=== PATIENT | female | born 1960 | race Caucasian/White ===

== ENCOUNTER 2020-12-08 12:38 | Outpatient (REF) | payer OTHER, SELFPAY ==
--- NOTE | ~2020-12-08 | MM_ITS ---
EXAMINATION: MM SCREENING DIGITAL BREAST TOMOSYNTHESIS, BILATERAL CLINICAL INFORMATION: Screening. Asymptomatic. The lifetime risk of breast cancer based on the Tyrer-Cuzick Model is 6%. COMPARISON: Mammography: 08/25/2019, 11/21/2016 TECHNIQUE: Digital breast tomosynthesis is performed in both the craniocaudal and mediolateral oblique views along with computer-aided detection (CAD). Synthesized 2D images are generated from the tomosynthesis. Additional left MLO view is provided. FINDINGS: The breasts are almost entirely fatty (ACR BI-RADS breast composition Category a). There are no significant masses, abnormal calcifications, or other abnormalities. The axilla and skin contours are unremarkable. MM/MM tomosynthesis screening BI IMPRESSION: No mammographic evidence of malignancy. ASSESSMENT: BI-RADS 1: Negative RECOMMENDATION: Routine annual mammography screening. This patient's information was entered into a reminder system with a target due date for their next mammogram.
== END 2020-12-08 12:39 | disposition home or self-care (01) ==
LOC: HO.MAMMO 12:38
PROVIDERS: Absent Provider Obstetrics & Gynecology; PCP Internal Medicine; Visit Provider Internal Medicine
DX: Z12.31 Encounter for screening mammogram for malignant neoplasm of breast (principal)
CPT/HCPCS: 77063; 77067

== ENCOUNTER 2022-03-26 13:22 | Outpatient (REF) | payer OTHER, SELFPAY ==
--- NOTE | ~2022-03-26 | MM_ITS ---
EXAMINATION: MM SCREENING DIGITAL BREAST TOMOSYNTHESIS, BILATERAL CLINICAL INFORMATION: Screening. Asymptomatic. The lifetime risk of breast cancer based on the Tyrer-Cuzick Model is 5.3%. COMPARISON: Mammography: December 08, 2020 and studies dating back to March 09, 2014 TECHNIQUE: Digital breast tomosynthesis is performed in both the craniocaudal and mediolateral oblique views along with computer-aided detection (CAD). Synthesized 2D images are generated from the tomosynthesis. FINDINGS: The breasts are almost entirely fatty (ACR BI-RADS breast composition Category a). There are no significant masses, abnormal calcifications, or other abnormalities. MM/MM tomosynthesis screening BI IMPRESSION: There are no significant changes from prior study. ASSESSMENT: BI-RADS 1: Negative RECOMMENDATION: Routine annual mammography screening. This patient's information was entered into a reminder system with a target due date for their next mammogram.
== END 2022-03-26 13:23 | disposition home or self-care (01) ==
LOC: HO.MAMMO 13:22
PROVIDERS: PCP Internal Medicine; Visit Provider Obstetrics & Gynecology
DX: Z12.31 Encounter for screening mammogram for malignant neoplasm of breast (principal)
CPT/HCPCS: 77063; 77067

== ENCOUNTER 2023-04-01 13:10 | Outpatient (REF) | payer OTHER, SELFPAY ==
--- NOTE | ~2023-04-01 | MM_ITS ---
EXAMINATION: MM SCREENING DIGITAL BREAST TOMOSYNTHESIS, BILATERAL CLINICAL INFORMATION: Screening. Asymptomatic. The lifetime risk of breast cancer based on the Tyrer-Cuzick Model is 6%. COMPARISON: Mammography: 03/26/2022, 12/08/2020, 08/25/2019 TECHNIQUE: Digital breast tomosynthesis is performed in both the craniocaudal and mediolateral oblique views along with computer-aided detection (CAD). Synthesized 2D images are generated from the tomosynthesis. FINDINGS: The breasts are almost entirely fatty (ACR BI-RADS breast composition Category a). Background stromal markings are normal. No developing density or architectural abnormality. There are no significant masses, abnormal calcifications, or other abnormalities. The axilla and skin contours are unremarkable. MM/MM tomosynthesis screening BI IMPRESSION: No mammographic evidence of malignancy. ASSESSMENT: BI-RADS 1: Negative RECOMMENDATION: Routine annual mammography screening. This patient's information was entered into a reminder system with a target due date for their next mammogram.
== END 2023-04-01 13:11 | disposition home or self-care (01) ==
LOC: HO.MAMMO 13:10
PROVIDERS: PCP Internal Medicine; Visit Provider Internal Medicine
DX: Z12.31 Encounter for screening mammogram for malignant neoplasm of breast (principal)
CPT/HCPCS: 77063; 77067

== ENCOUNTER 2024-04-06 13:22 | Outpatient (REF) | payer OTHER, SELFPAY | END 2024-04-06 13:23 | disposition home or self-care (01) | LOC: HO.MAMMO 13:22 | PROVIDERS: PCP Internal Medicine; Visit Provider Internal Medicine | DX: Z12.31 Encounter for screening mammogram for malignant neoplasm of breast (principal) | CPT/HCPCS: 77063; 77067 ==

== ENCOUNTER → 2024-04-06 13:30 | Outpatient (BNV) | payer OTHER, SELFPAY | PROVIDERS: PCP Internal Medicine; Visit Provider Radiology Diagnostic Radiology | DX: Z12.31 Encounter for screening mammogram for malignant neoplasm of breast (principal) | CPT/HCPCS: 77063; 77067 ==

== ENCOUNTER 2025-04-12 13:07 | Outpatient (REF) | payer OTHER, SELFPAY ==
--- NOTE | ~2025-04-12 | MM_ITS ---
EXAMINATION: MM SCREENING DIGITAL BREAST TOMOSYNTHESIS, BILATERAL CLINICAL INFORMATION: Screening. Asymptomatic. COMPARISON: Mammography: Comparison is made with available priors TECHNIQUE: Digital breast mammography with tomosynthesis is performed in both the craniocaudal and mediolateral oblique views along with computer-aided detection (CAD). FINDINGS: There are scattered areas of fibroglandular density (ACR BI-RADS breast composition Category b). There are no significant masses, abnormal calcifications, or other abnormalities. MM/MM tomosynthesis screening BI IMPRESSION: No mammographic evidence of malignancy. ASSESSMENT: BI-RADS BI-RADS 1 - Negative RECOMMENDATION: Routine annual mammography screening. 1 year F/U This examination should not preclude the clinical evaluation of a suspicious palpable abnormality. This patient's information was entered into a reminder system with a target due date for their next mammogram. Electronically signed by: Vangie Zazueta DO 04/15/2025 05:34 PM EDT
--- OUTSIDE RECORDS SUMMARY | 2025-04-12 14:57 | XMS_ITS | Clinical Summary ---
Author Organization [facility] [address] [place] [address] [place] [address] Phone Care Team Providers Care Wall Taper Helper Name Role Phone Rafael Sandhu MD Primary Care Provider [phone] Allergies Active Allergy Reactions Criticality Noted Date Comments Gluten 06/14/2019 Latex Swelling 06/14/2019 Nut - Unspecified Hives 06/24/2019 Ragweed 06/27/2019 Medications EPINEPHrine (EpiPen 2-Isaiah) 0.3 mg/0.3 mL injection Inject 0.3 mL (0.3 mg total) as directed if needed for anaphylaxis. 01/22/2022 Active ibuprofen 200 mg capsule Take 2 tablets by mouth 2 (two) times a day. Active DULoxetine (CYMBALTA) [address] capsule Take 1 capsule (60 mg total) by mouth 1 (one) time each day. 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 Cataract 06/14/2019 Overview (09/01/2024): Right, Left - removal 2017 Celiac disease 06/14/2019 Chronic left hip pain 06/14/2019 Diverticulosis 06/14/2019 Fibromyalgia 06/14/2019 Idiopathic peripheral neuropathy 06/14/2019 Insomnia 06/14/2019 Osteoarthritis 06/14/2019 Overview (09/01/2024): Left Hip Encounters Date Type Department Care Team Description 03/10/2025 1:00 PM EDT Treatment Outpatient Rehabilitation [address] [phone] John Daysi, CONSUMER LOAN SPECIALIST Chronic left shoulder pain (Primary Dx) 03/08/2025 1:00 PM EDT Treatment Outpatient Rehabilitation - [address] [phone] Ludwig Jeffries, PT Chronic left shoulder pain (Primary Dx) 03/03/2025 4:00 PM EDT Treatment Outpatient Rehabilitation - [address] [phone] Ascenciondionnedoyle Daysi, CONSUMER LOAN SPECIALIST Chronic left shoulder pain (Primary Dx) 03/01/2025 12:30 PM EDT Treatment Outpatient Rehabilitation - [address] [phone] Ascenciondionnedoyle Daysi, CONSUMER LOAN SPECIALIST Chronic left shoulder pain (Primary Dx) 02/24/2025 1:00 PM EDT Evaluation Outpatient [facility] - [address] [phone] Ludwig Jeffries, PT Chronic left shoulder pain (Primary Dx) 02/24/2025 Plan of Care Documentation Outpatient Rehabilitation - [address] [phone] from Last 3 Months Immunizations Name Administration Dates Next Due [employer] SARS-CoV-2 COVID -19, vector-nr, [id number], preservative free 10/04/2021 Td Tetanus diptheria (Tdvax) 7yo and older 08/18 Tdap Tetanus diptheria acell ular pertussis (Boostrix; Adacel) 7yo and older 03/11/2022 Surgical History Surgery Date Site/Laterality Comments BLADDER SUSPENSION PROCEDURE: HISTORICAL BLADDER SUSPENSION CATARACT EXTRACTION 09/24/2017 Left PROCEDURE: HISTORICAL CATARACT REMOVAL OTHER SURGICAL HISTORY 11/2018 Left PROCEDURE: PA ARTHRP ACETBLR/PROX FEM PROSTC AGRFT/ALGRFT; COMMENT: [facility] Medical History Medical History Date Comments Celiac disease 06/14/2019 DX:Celiac diseas e Idiopathic peripheral neuropathy 06/14/2019 DX:Idiopathic peripheral neuropathy Insomnia 06/14/2019 DX:Insomnia Fibromyalgia 06/14/2019 DX:Fibromyalgia Cataract 06/14/2019 DX:Cataract; COM MENT: Right, Left - removal 2017 Chronic left hip pain 06/14/2019 DX:Chronic left hip pain Diverticulosis 06/14/2019 DX:Diverticulosi s Osteoarthritis 06/14/2019 DX:Osteoarthriti s; COMMENT: Left Hip Family History Medical History Relation Name Comments Heart failure Father [place],diabetic si nce in 50's Other: Other Father's side Diabetes Coronary artery disease Mother Breast cancer Neg Hx Colon cancer Neg Hx Relation Name Status Comments Father Father's side Mother Alive Social History Tobacco Use Types Packs/Day Years Used Date Smoking Tobacco: Never Smokeless Tobacco: Never Alcohol Use Standard Drinks/Week Comments Yes 0 (1 standard drink = 0.6 oz pur e alcohol) Comments Unknown Sex and Gender Information Value Date Recorded Sex Assigned at Female 02/03/2025 2:10 PM EDT Legal Sex Female 3:07 AM EST Gender Identity Female 02/03/2025 2:10 PM EDT Sexual Orientation Straight 02/03/2025 2: 10 PM EDT Obstetrics History Last Filed Vital Signs Vital Sign Reading Time Taken Comments Blood Pressure 114/68 12/08/2024 2:54 PM EST Pulse 94 12/08/2024 2:54 PM EST Temperature 35.6 C (96 F) 12/08/2024 2:54 PM EST Respiratory Rate - - Oxygen Saturation 96% 12/08/2024 2:54 PM EST Inhaled Oxygen Concentration - - Weight 91.1 kg (200 lb 12.8 oz) 12/08/2024 2:54 PM EST Height 167.6 cm (5' 5.98 ) 12/08/2024 2:54 PM ES T Body Mass Index 32.43 12/08/2024 2:54 PM EST Plan of Treatment Upcoming Encounters Date Type Department Care Team (Late st Contact Info) Description 06/07/2025 2:30 PM EDT Office Visit Adult Medicine [address] [phone] Lori Jacobs PA [address] [place] [id number] Health Maintenance Due Date Last Done Comments Breast Cancer Screening 1960 Pneumococcal Vaccine: 50+ Years (1 of 1 - PCV) 02/19/2012 Zoster Vaccines (1 of 2) 02/19/2012 HIV Screening 09/28/2022 Social Influencers of Health Screening 09/28/2022 COVID-19 Vaccine (3 - 2023-2 5 season) 2024 10/04/2021, 02/20/2021 Depression Screening 04/01/2025 04/01/2024 Influenza Vaccine (Season Ended) 2025 Cervical Cancer Screening: P ap Smear 09/16/2026 09/16/2023 Colorectal Cancer Screening: Colonoscopy 09/13/2029 09/13/2019 DTaP,Tdap,and Td Vaccines (3 - Td or Tdap) 03/11/2032 03/11/2022, 08/18/2019 RSV Immunization Adult Patients (1 - 1-dose 75+ series) 2037 Hepatitis C Screening Completed 11/26/2022 HIB Vaccines Aged Out No longer eligi ble based on patient's age to complete this topic HPV Vaccines Aged Out No longer eligi ble based on patient's age to complete this topic Hepatitis A Vaccines Aged Out No long er eligible based on patient's age to complete this topic Hepatitis B Vaccines Aged Out No long er eligible based on patient's age to complete this topic IPV Vaccines Aged Out No longer eligi ble based on patient's age to complete this topic MMR Vaccines Aged Out No longer eligi ble based on patient's age to complete this topic Meningococcal ACWY Vaccine Aged Out N o longer eligible based on patient's age to complete this topic Meningococcal B Vaccine Aged Out No l onger eligible based on patient's age to complete this topic Pneumococcal Vaccine: Pediatrics (0 to 5 Years) and At-Risk Patients (6 to 64 Years) Aged Out No longer eligible b ased on patient's age to complete this topic RSV Immunization Patients Under 20 months Aged Out No longer eligible b ased on patient's age to complete this topic Varicella Vaccines Aged Out No longer eligible based on patient's age to complete this topic Goals Goal Patient Goal Type Associated Problems Recent Progress Patient-Stated? Author STG's 6 visits General Yes Ludwig Jeffries, PT Note: Pt is Independent and compliant with initial HEP. Pt will demonstrate combined left shoulder ext, adduction and IR to L4 for dressing behind back. Pt will demonstrate active L shoulder flexion of 135 degrees or better for overhead activities. Pt will report L shoulder pain of no more than 5/10 on VAS during functional use of L UE. LTG's 12 visits General Yes Ludwig Jeffries, PT Note: Pt will be Independent and compliant with final HEP. Pt will demonstrate left shoulder to posterior R GH joint to towel off R arm after shower. Pt will demonstrate active L shoulder flexion of 145 degrees or better for overhead activities. Pt will report L shoulder pain of no more than 3/10 on VAS during functional use of L UE. Procedures Procedure Name Priority Date/Time Associated Diagnosis Comments DEPRESSION SCREENING Routine 04/01/2024 PAP SMEAR Routine 09/16/2023 HEPATITIS C SCREENING Routine 11/26/2022 COLONOSCOPY Routine 09/13/2019 from Last 3 Months or Most Recently Relevant to Health Maintenance Results * Depression Screening (04/01/2024) Depression Screening abstracted [facility] Provider HEALTH MAINTENANCE Final Result * Pap Smear (09/16/2023) Pap smear no interpretation , abstracted [facility] Provider HEALTH MAINTENANCE Final Result * Hepatitis C Screening (11/26/2022) Hepatitis C Screening abstracted [facility] Provider HEALTH MAINTENANCE Final Result * Colonoscopy (09/13/2019) Colonoscopy no interpretation , abstracted Anatomical Region Laterality Modality Other [facility] Provider HEALTH MAINTENANCE Final Result from Last 3 Months or Most Recently Relevant to Health Maintenance Insurance [employer] Care Teams Wall Taper Helper Relationship Specialty Start Date End Date Rafael Sandhu MD [address] [place] [address] [phone] PCP - General Internal Medicine 10/29/24
== END 2025-04-12 13:08 | disposition home or self-care (01) ==
LOC: HO.MAMMO 13:07
PROVIDERS: PCP Internal Medicine; Visit Provider Internal Medicine
DX: Z12.31 Encounter for screening mammogram for malignant neoplasm of breast (principal)
CPT/HCPCS: 77063; 77067

== ENCOUNTER → 2025-04-12 13:15 | Outpatient (BNV) | payer OTHER, SELFPAY | PROVIDERS: PCP Internal Medicine; Visit Provider Internal Medicine | DX: Z12.31 Encounter for screening mammogram for malignant neoplasm of breast (principal) | CPT/HCPCS: 77063; 77067 ==